=== PATIENT | female | born 1950 | race Caucasian/White ===

== ENCOUNTER 2021-10-26 19:19 | Inpatient (IN) | payer MEDICARE, OTHER ==
[~2021-10-26] VITALS: Ht 162.6 cm; Wt 43.7 kg
[~2021-10-26 19:19] MED LIST: DAILY VITAMIN1 EAC1 PO; ENSURE PLUS237 ML PO; FEOSOL325 MG PO; THERAGRAN M TAB1 EA PO; VITAMIN D350000 UNIT PO; ZANTAC150 MG PO
[2021-10-26 20:09] LABS: HEMOGLOBIN 15.3 gm/dl (12.3-15.3); RED BLOOD COUNT 6.14 M/UL (4.00-5.10); WHITE BLOOD COUNT 6.5 K/UL (4.5-11.0)
[2021-10-26 20:21] LABS: BUN/CREATININE RATIO 38 (0-10)
[2021-10-27] MEDS ORDERED: FLONASE 0.05% N16 GM (09:36)
[2021-10-27] MEDS ORDERED: HYDROXYZINE PAM25 MG PO (09:36)
[2021-10-27] MEDS ORDERED: OMEPRAZOLE20 MG PO (09:37)
[2021-10-27] MEDS ORDERED: IPRAT-ALBUT 0.5-3 ML INH (09:37)
[2021-10-27] MEDS ORDERED: MEGACE TAB 40 M40 MG PO (09:37)
[2021-10-27] MEDS ORDERED: SERTRALINE HCL25 MG PO (09:37)
[2021-10-27 10:26] LABS: WHITE BLOOD COUNT 2.9 K/UL (4.5-11.0)
[2021-10-27 10:27] LABS: HEMOGLOBIN 12.9 gm/dl (12.3-15.3); RED BLOOD COUNT 5.25 M/UL (4.00-5.10)
[2021-10-27 10:50] LABS: BUN/CREATININE RATIO 45 (0-10)
[2021-10-28 03:39] LABS: HEMOGLOBIN 11.6 gm/dl (12.3-15.3); RED BLOOD COUNT 4.78 M/UL (4.00-5.10)
[2021-10-28 03:57] LABS: BUN/CREATININE RATIO 44 (0-10)
[2021-10-29 06:40] LABS: HEMOGLOBIN 12.1 gm/dl (12.3-15.3); RED BLOOD COUNT 4.96 M/UL (4.00-5.10)
[2021-10-29 06:45] LABS: WHITE BLOOD COUNT 10.2 K/UL (4.5-11.0)
[2021-10-29 07:22] LABS: BUN/CREATININE RATIO 41 (0-10)
[2021-10-30 04:16] LABS: HEMOGLOBIN 12.4 gm/dl (12.3-15.3); RED BLOOD COUNT 5.13 M/UL (4.00-5.10); WHITE BLOOD COUNT 10.8 K/UL (4.5-11.0)
[2021-10-30 04:39] LABS: BUN/CREATININE RATIO 35 (0-10)
--- NOTE | 2021-10-31 09:58 | NUR ---
ROOM AIR OXYGEN SATURATION OBTAINED AND MEASURED 86%. OXYGEN REAPPLIED. NO S/SX OF DISTRESS NOTED.
[2021-10-31] MEDS ORDERED: SANTYL OINT 3030 GM TOP (14:36)
--- NOTE | 2021-10-31 16:19 | NUR ---
REPORT CALLED TO [facility].
== END 2021-10-31 17:23 | disposition home health service (06) | DRG 177 ==
LOC: ER1 19:19 → PROG CARE 22:35 → CDU 22:35 → PROG CARE 22:35 → MED SURG 4 10-28 15:01
PROVIDERS: Emergency Medicine; ADMIT Internal Medicine
PROC: 8E0ZXY6 Isolation (ICD-10-PCS; principal; 2021-10-27)
PROC: XW033E5 Introduction of Remdesivir Anti-infective into Peripheral Vein, Percutaneous Approach, New Technology Group 5 (ICD-10-PCS; 2021-10-27)
PROC: 3E0333Z Introduction of Anti-inflammatory into Peripheral Vein, Percutaneous Approach (ICD-10-PCS; 2021-10-27)
DX: U07.1 COVID-19 (principal); L89.214 Pressure ulcer of right hip, stage 4; J12.82 Pneumonia due to coronavirus disease 2019; J96.21 Acute and chronic respiratory failure with hypoxia; J44.0 Chronic obstructive pulmonary disease with (acute) lower respiratory infection; G82.20 Paraplegia, unspecified; E44.0 Moderate protein-calorie malnutrition; Z68.1 Body mass index [BMI] 19.9 or less, adult; N30.00 Acute cystitis without hematuria; E87.1 Hypo-osmolality and hyponatremia; F17.200 Nicotine dependence, unspecified, uncomplicated; L89.320 Pressure ulcer of left buttock, unstageable; L89.310 Pressure ulcer of right buttock, unstageable; L89.226 Pressure-induced deep tissue damage of left hip; B34.9 Viral infection, unspecified; E86.0 Dehydration; D64.9 Anemia, unspecified; B96.5 Pseudomonas (aeruginosa) (mallei) (pseudomallei) as the cause of diseases classified elsewhere; E87.6 Hypokalemia; F41.9 Anxiety disorder, unspecified; K44.9 Diaphragmatic hernia without obstruction or gangrene; G47.33 Obstructive sleep apnea (adult) (pediatric); Z87.442 Personal history of urinary calculi; Z87.11 Personal history of peptic ulcer disease; Z79.899 Other long term (current) drug therapy; Z91.14 Patient's other noncompliance with medication regimen; E88.09 Other disorders of plasma-protein metabolism, not elsewhere classified
CPT/HCPCS: 0240U; 36415; 71045; 80048; 80053; 81001; 82550; 82553; 82962; 83605; 83735; 84484; 85025; 85027; 86140; 87040; 87077; 87086; 87186; 93005; 94640; 94664; 94760; 96372; 96374; 96375; 96376; 99285; A6212; G0378; J0248; J0696; J1100; J1644; J2543; J7030; Q0177

== ENCOUNTER → 2021-12-30 | Outpatient (CLI) | payer MEDICARE, OTHER ==
[~2021-12-30] MED LIST changes: +FLONASE 0.05% N16 GM; +HYDROXYZINE PAM25 MG PO; +IPRAT-ALBUT 0.5-3 ML INH; +MEGACE TAB 40 M40 MG PO; +OMEPRAZOLE20 MG PO; +SANTYL OINT 3030 GM TOP; +SERTRALINE HCL25 MG PO
== END ==
LOC: KOH-I 15:41
DX: S82.831A Other fracture of upper and lower end of right fibula, initial encounter for closed fracture (principal); S82.301A Unspecified fracture of lower end of right tibia, initial encounter for closed fracture; M21.861 Other specified acquired deformities of right lower leg; M85.871 Other specified disorders of bone density and structure, right ankle and foot
CPT/HCPCS: 73610

== ENCOUNTER → 2022-01-30 | Outpatient (CLI) | payer MEDICARE, OTHER | LOC: KOH-I 13:39 | DX: S82.301D Unspecified fracture of lower end of right tibia, subsequent encounter for closed fracture with routine healing (principal); S82.831D Other fracture of upper and lower end of right fibula, subsequent encounter for closed fracture with routine healing | CPT/HCPCS: 73610 ==